=== PATIENT | female | born 1945 | race Caucasian/White ===

== ENCOUNTER 2020-03-06 08:19 | Emergency (ER) | payer SELFPAY ==
[2020-03-06 08:37] VITALS: PULSE 68; TEMP 98.3; BMI 28.6
[2020-03-06] MEDS ORDERED: ONDANSETRON 4 MG/2 ML VIAL IVPUSH ONE (08:38)
[2020-03-06] MEDS ORDERED: MECLIZINE HCL 25 MG TABLET (FP) PO ONE (08:38)
--- NOTE | 2020-03-06 08:38 | PDOC ---
Rapid Medical Evaluation Time Seen by Provider: 03/06/20 08:34 Medical Evaluation: Allergies Allergy/AdvReac Type Severity Reaction Status Date / Time No Known Allergies Allergy Verified 03/06/20 08:33 03/06/20 08:35 CC: dizziness with nausea when she got up this am, worse with movement denies headache, denies visual changes, left ear pain x 4 days, denies fever, also states mild ruq pain Exam: vss Plan: labs, meclizine, ekg, iv, zofran, mag. Discharge Disposition - Diagnosis Dizziness - Referrals - Patient Instructions - Post Discharge Activity
[2020-03-06] MEDS ORDERED: MECLIZINE HCL 25 MG TABLET (FP) ONE (08:47)
[2020-03-06 09:12] LABS: BASO % 0.9 % (0-2.0); EOS % 1.5 % (0-4.5); HEMATOCRIT 42.3 % (32.4-45.2); HEMOGLOBIN 14.3 GM/dL (10.7-15.3); LYMPH % 26.3 % (8-40); MCH 29.9 pg (25.7-33.7); MCHC 33.7 g/dl (32.0-36.0); MEAN CELL VOLUME 88.7 fl (80-96); MEAN PLT VOLUME 7.8 fl (7.5-11.1); MONO % 6.6 % (3.8-10.2); NEUT % 64.7 % (42.8-82.8); PLATELET COUNT 309 K/MM3 (134-434); RBC 4.77 M/mm3 (3.60-5.2); RDW 14.6 % (11.6-15.6); WHITE BLOOD COUNT 8.3 K/mm3 (4.0-10.0)
[2020-03-06 09:51] LABS: ALBUMIN 3.6 g/dl (3.4-5.0); ALK PHOS 122 U/L (45-117); ANION GAP 8 MMOL/L (8-16); BILIRUBIN,TOTAL 0.6 mg/dL (0.2-1); BLOOD UREA NITROGEN 13.1 mg/dL (7-18); CALCIUM 8.8 mg/dL (8.5-10.1); CHLORIDE 106 mmol/L (98-107); CO2 26 mmol/L (21-32); CREATININE 0.8 mg/dL (0.55-1.3); GLUCOSE,RANDOM 148 mg/dL (74-106); LIPASE 121 U/L (73-393); MAGNESIUM 2.2 mg/dL (1.8-2.4); POTASSIUM 4.9 mmol/L (3.5-5.1); SGOT/AST 59 U/L (15-37); SGPT/ALT 57 U/L (13-61); SODIUM 140 mmol/L (136-145); TOT PROT 7.8 g/dl (6.4-8.2)
[2020-03-06 10:47] LABS: EPI CELLS >36 /uL (0-25.1); HYALINE CASTS 1 /uL (0-3.1); PH,URINE >= 9.0 (5.0-8.0); URINE APPEARANCE CLOUDY; URINE BACTERIA 645 /uL (0-1359); URINE BILIRUBIN NEGATIVE (NEGATIVE); URINE COLOR YELLOW; URINE GLUCOSE (UA) NEGATIVE (NEGATIVE); URINE KETONE NEGATIVE (NEGATIVE); URINE LEUK ESTERASE 1+ (NEGATIVE); URINE NITRITE NEGATIVE (NEGATIVE); URINE PROTEIN TRACE (NEGATIVE); URINE RBC 9 /uL (0-23.9); URINE WBC 19 /uL (0-25.8)
--- NOTE | 2020-03-06 11:34 | EKG ---
Test Reason : Blood Pressure : / mmHG Vent. Rate : 074 BPM Atrial Rate : 074 BPM P-R Int : 178 ms QRS Dur : 072 ms QT Int : 436 ms P-R-T Axes : 053 037 062 degrees QTc Int : 483 ms NORMAL SINUS RHYTHM LEFT ATRIAL ENLARGEMENT NONSPECIFIC ST ABNORMALITY BORDERLINE ECG Confirmed by MD SHAHIDA, ZACH ([id number]) on 03/06/2020 11:33:44 AM Referred By: Confirmed By:ZACH PINEDO MD
--- NOTE | 2020-03-06 11:52 | PDOC ---
Attending Attestation - Resident Resident Name: Richard Avila - ED Attending Attestation I have performed the following: I have examined & evaluated the patient, The case was reviewed & discussed with the resident, I agree w/resident's findings & plan - HPI HPI: 03/06/20 11:48 74y/o high functioning female with h/o gallstones presents with 2d abd pain/n/v. Pt diagnosed with gallstones in [facility], since 2d ago has had positional vertigo with n/v. has had similar issues in the past stemming from an ear injury as a child in [facility]. no falls, no hurt/vision change/speech change/focal weakness. denies abd pain other than post-emesis stomach burning. tolerating PO. no urinary complaints. - Physicial Exam PE: 03/06/20 11:49 afebrile, vss alert, no jaundice/pallor s1s2 rrr, ctab abd benign, soft/nt/nd bs nl preauricular sts without dental infection or ttp no external ear redness or swelling, small pustular lesion L auditory canal without TM inflammation neck supple, no carotid bruit audible neuro exam completely normal - Medical Decision Making 03/06/20 11:49 74y/o F with positional dizziness/vertigo associated with n/v. presentation seems most consistent with BPV, likely 2/2 underlying chronic inflammation from childhood injury. small pustule on exam without obvious OM. labs, ua wnl. urine cx sent and will f/u -- UA contaminated and pt asx, so not treated empirically ekg wnl ruq sono nl feels better after meds, tolerating PO agrees with d/c plan, daughter at bedside, understands return criteria 03/06/20 12:58 neuro and ENT referral Heart Score/ECG Review #1 ECG reviewed & interpreted by me at: 08:50 General ECG Interpretation: Sinus Rhythm, Normal Rate (74), Normal Intervals (qtc 483), No acute ischemic changes Discharge - Discharge Information Problems reviewed: Yes Clinical Impression/Diagnosis: Dizziness Nausea and vomiting Qualifiers: Vomiting type: unspecified Vomiting Intractability: non-intractable Qualified Code(s): R11.2 - Nausea with vomiting, unspecified Condition: Improved - Follow up/Referral - Patient Discharge Instructions - Post Discharge Activity
--- NOTE | 2020-03-06 11:54 | PDOC ---
History of Present Illness - General Chief Complaint: Nausea/Vomiting Stated Complaint: Nausea/Vomiting/RIGHT SIDE Time Seen by Provider: 03/06/20 08:34 - History of Present Illness Initial Comments: 74 yo female with pmh of gallstones presents to ED for emesis and RUQ pain for past two days. Pt is brit[place] virgin islander speaker so translation done on phone ([phone]). Pt explains that she has had about 6 episodes of emesis since Thursday. She has not been able to keep much food down. She has a RUQ pain as well that comes and goes. She explains the pain is a 5/10 in intensity that is worse when eating. She describes it as a sharp pain that radiates to her right shoulder. She does have associated sxs of lightheadedness and left ear pain. She denies any diarrhea, constipation, SOB, chest pain, dyspnea on exertion, or any change in urination. PMH: Gallstone, uterine prolapse Med: Denies PSH: Pessary for uterus Allergies: denies Social: denies tobacco, alcohol, or drugs PCP: denies any PCP 03/06/20 11:48 03/06/20 17:08 Past History - Medical History Allergies/Adverse Reactions: Allergies Allergy/AdvReac Type Severity Reaction Status Date / Time No Known Allergies Allergy Verified 03/06/20 08:33 Home Medications: Ambulatory Orders Ciprofloxacin HCl/Dexameth [Ciprodex Otic Suspension] 4 drop BID #1 bottle 03/06/20 Meclizine HCl [Antivert -] 25 mg PO QID #28 tablet 03/06/20 - Psycho-Social/Smoking History Smoking History: Never smoked Information on smoking cessation initiated: No - Substance Abuse Hx (Audit-C & DAST Scrn) How often the patient has a drink containing alcohol: Never Score: In Men: 4 or > Positive; In Women: 3 or > Positive: 0 Screen Result (Pos requires Nsg. Audit-10AR): Negative Review of Systems - Review of Systems Comments:: GENERAL/CONSTITUTIONAL: No fever or chills. No weakness. HEAD, EYES, EARS, NOSE AND THROAT: Positive for Ear pain. No change in vision. No sore throat. CARDIOVASCULAR: No chest pain or shortness of breath RESPIRATORY: No cough, wheezing, or hemoptysis. GASTROINTESTINAL: Nausea and Vomitting GENITOURINARY: No dysuria, frequency, or change in urination. MUSCULOSKELETAL: No joint or muscle swelling or pain. No neck or back pain. SKIN: No rash NEUROLOGIC: No headache, vertigo, loss of consciousness, or change in strength/sensation. ENDOCRINE: No increased thirst. No abnormal weight change HEMATOLOGIC/LYMPHATIC: No anemia, easy bleeding, or history of blood clots. ALLERGIC/IMMUNOLOGIC: No hives or skin allergy. *Physical Exam - Vital Signs Last Vital Signs Temp Pulse Resp BP Pulse Ox 98.3 F 68 17 133/76 98 03/06/20 08:33 03/06/20 08:33 03/06/20 08:33 03/06/20 08:33 03/06/20 08:33 - Physical Exam GENERAL: Awake, alert, and fully oriented, in no acute distress HEAD: No signs of trauma, normocephalic, atraumatic EYES: PERRLA, EOMI, sclera anicteric, conjunctiva clear ENT: TM intact with mild erythema of left ear; Mild swelling of left preauricular area. Auricles normal inspection, hearing grossly normal, nares patent, oropharynx clear without exudates. Moist mucosa NECK: Normal ROM, supple, no lymphadenopathy, JVD, or masses LUNGS: No distress, speaks full sentences, clear to auscultation bilaterally HEART: Regular rate and rhythm, normal S1 and S2, no murmurs, rubs or gallops, peripheral pulses normal and equal bilaterally. ABDOMEN: normoactive bowel sounds in all four quadrants. Tenderness to palpation on RUQ. Positive Lobo sign EXTREMITIES : Normal inspection, Normal range of motion, no edema. No clubbing or cyanosis. NEUROLOGICAL: Cranial nerves II through XII grossly intact. Normal speech, normal gait, no focal sensorimotor deficits SKIN: Warm, Dry, normal turgor, no rashes or lesions noted ED Treatment Course - LABORATORY CBC & Chemistry Diagram: 03/06/20 09:05 03/06/20 09:05 - ADDITIONAL ORDERS Additional order review: Laboratory Results 03/06/20 03/06/20 10:30 09:05 Sodium 140 Potassium 4.9 Chloride 106 Carbon Dioxide 26 Anion Gap 8 BUN 13.1 Creatinine 0.8 Est GFR (CKD-EPI)AfAm 85.37 Est GFR (CKD-EPI)NonAf 73.65 Random Glucose 148 H Calcium 8.8 Magnesium 2.2 Total Bilirubin 0.6 AST 59 H ALT 57 Alkaline Phosphatase 122 H Creatine Kinase 139 Troponin I < 0.02 Total Protein 7.8 Albumin 3.6 Lipase 121 Urine Color Yellow Urine Appearance Cloudy Urine pH >= 9.0 H Ur Specific [place] 1.020 Urine Protein Trace Urine Glucose (UA) Negative Urine Ketones Negative Urine Blood Negative Urine Nitrite Negative Urine Bilirubin Negative Urine Urobilinogen 1.0 Ur Leukocyte Esterase 1+ H Urine WBC (Auto) 19 Urine RBC (Auto) 9 Urine Casts (Auto) 1 U Epithel Cells (Auto) >36 Urine Bacteria (Auto) 645 03/06/20 09:05 RBC 4.77 MCV 88.7 MCHC 33.7 RDW 14.6 MPV 7.8 Neutrophils % 64.7 Lymphocytes % 26.3 Monocytes % 6.6 Eosinophils % 1.5 Basophils % 0.9 - RADIOLOGY Radiology Studies Ordered: Category Date Time Status ABDOMEN US -LIMITED [US] Stat Ultrasound 03/06/20 10:56 Ordered - Medications Given in the ED: ED Medications Discontinued Medications Generic Name Dose Route Start Last Admin Trade Name Leslie PRN Reason Stop Dose Admin Meclizine HCl 25 mg 03/06/20 08:38 03/06/20 08:48 Antivert - PO 03/06/20 08:39 25 mg ONCE ONE Administration Ondansetron HCl 4 mg 03/06/20 08:38 03/06/20 08:48 Zofran Injection IVPUSH 03/06/20 08:39 4 mg ONCE ONE Administration Medical Decision Making - Medical Decision Making Ddx: - cholecystitis -cholelithiasis -cholodocolithiasis -viral gastritis -vertigo 74 yo female with PMH of gallstones presents to ED with nausea, vomitting, RUQ pain, lightheadedness and left ear pain. Pt was given Meclinzine zofran and had labs. Labs showed elevated Alk phos so got a RUQ ultrasound. After medication, pt explains she does feel better. 03/06/20 12:27 Pt has just returned from ultrasound and has explained her pain is feeling better and now 310. 03/06/20 12:59 Pt is feeling better able to tolerate PO, but still has some lightheadedness with ear pain. She does feel better and does agree to go home and was given proper discharge instruction 03/06/20 13:32 Pt has passed PO challenge and has felt better. 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 Told pt and daughter to see GI in one week and gave info on discharge papers. Pt also referred to neurology and ENT within one week. Pt also prescribed Meclizine for dizziness and Cipro for ear. Pt is agreeable with plan. Discharge - Discharge Information Problems reviewed: Yes Clinical Impression/Diagnosis: Dizziness Nausea and vomiting Qualifiers: Vomiting type: unspecified Vomiting Intractability: non-intractable Qualified Code(s): R11.2 - Nausea with vomiting, unspecified Condition: Improved Disposition: HOME - Additional Discharge Information Prescriptions: Meclizine HCl [Antivert -] 25 mg PO QID #28 tablet Ciprofloxacin HCl/Dexameth [Ciprodex Otic Suspension] 4 drop BID #1 bottle - Follow up/Referral Referrals: John Nguyen MD [Staff Physician] - Bharat Weller MD [Staff Physician] - Eliel Landry MD [Staff Physician] - - Patient Discharge Instructions Patient Printed Discharge Instructions: Vertigo, Gallstones Additional Instructions: You came into the ED because you had right upper quadrant pain, vomitting, and left ear pain with lightheadedness. This most likely is due to vertigo or ear infection. Meclizine and ciprofloxacin drops have been prescibed to [facility] pharmacy for the dizziness and possible ear infection. Please take 25mg of Meclizine 4 times a day for the dizziness. Please take ciprofloxacin drops 4 drops in infected ear twice a day for 7 days. We also gave you a referral to a neurologist Dr. Weller, ENT Dr. Landry, and Camera Machinist Dr. Nguyen Please return to the ED if you: - Have worsening dizziness - uncontrollable vomitting - unable to take anything by mouth - Shortness of breath -chest pain - altered or loss of consciousness - unable to make a bowel movement If you think you have an emergency call for medical help right away. Ingres al servicio de urgencias porque eusebio dolor en el cuadrante superior derecho, vmitos y dolor en el odo isis con aturdimiento. Myra probablemente se deba a vrtigo o infeccin del odo. Las gotas de meclizina y ciprofloxacina se martin recetado a la farmacia Sunlight por el octeo y la posible infeccin del odo. [place] 25 mg de meclizina 4 veces al da para los mareos. [place] gotas de ciprofloxacina 4 gotas en el odo infectado dos veces al da saud 7 wong. Marlyn le dimos laurie referencia a un neurlogo Dr. Weller, ENT Dr. Landry y Gastroenterlogo Dr. Nguyen Por favor regrese al ED si usted: - Se empeoran los mareos - vmitos incontrolables - incapaz de lilian nada por va oral - Dificultad para respirar -dolor en el pecho - alteracin o prdida de conciencia - incapaz de defecar Si candi que tiene laurie llamada de emergencia para recibir ayuda mdica de inmediato Print Language: [place] - Post Discharge Activity
[2020-03-06 13:47] VITALS: BP 130/88
== END 2020-03-06 13:46 | disposition home or self-care (01) ==
LOC: JER 08:19
PROC: 3E033GC Introduction of Other Therapeutic Substance into Peripheral Vein, Percutaneous Approach (ICD-10-PCS; principal; 2020-03-06)
DX: R42 Dizziness and giddiness (principal); R11.2 Nausea with vomiting, unspecified
CPT/HCPCS: 36415; 76705-TC; 80053; 81003; 82550; 83690; 83735; 84484; 84702; 84703; 85025; 87086; 93005; 93010; 99285-25